=== PATIENT | female | born 1990 | race Caucasian/White ===

== ENCOUNTER 2016-08-10 13:56 | Emergency (ER) | payer OTHER ==
[~2016-08-10] VITALS: Ht 160 cm; Wt 55.0 kg
[2016-08-10] MEDS ORDERED: IBUPROFEN 200200 M1 PO (14:00)
[2016-08-10 14:17] LABS: URINE BILIRUBIN NEGATIVE (Negative); URINE BLOOD TRACE (Negative); URINE COLOR YELLOW; URINE GLUCOSE-RANDOM* NEGATIVE (Negative); URINE KETONES NEGATIVE (Negative); URINE NITRITE NEGATIVE (Negative); URINE PROTEIN (DIPSTICK) NEGATIVE (Negative); URINE UROBILINOGEN 0.2 E.U./dl (0.2-1.0)
[2016-08-10 14:26] LABS: CASTS None Seen /LPF (None Seen); SQUAMOUS >10 Many /LPF (0-3)
[2016-08-10 14:27] LABS: BACTERIA 1-9 Few /HPF (None Seen); CRYSTALS None Seen /LPF (None Seen); URINE RBC 0-2 Rare /HPF (0-2); URINE WBC 6-15 Few /HPF (0-5)
[2016-08-10] MEDS ORDERED: ZOFRAN ODT4 MG PO (15:06)
[2016-08-10] MEDS ORDERED: PROAIR HFA8.5 GM INH (15:06)
[2016-08-10] MEDS ORDERED: PROMETHAZINE-C120 ML PO (15:06)
[2016-08-10] MEDS ORDERED: PREDNISONE 20 M20 MG PO (15:06)
[2016-08-10 15:36] VITALS: BP 116/71
== END 2016-08-10 15:37 | disposition home or self-care (01) ==
LOC: ER 13:56
PROVIDERS: Emergency Medicine
DX: J06.9 Acute upper respiratory infection, unspecified (principal); M79.1 Myalgia; R11.2 Nausea with vomiting, unspecified; B95.1 Streptococcus, group B, as the cause of diseases classified elsewhere